=== PATIENT | female | born 1965 | race Caucasian/White ===

== ENCOUNTER 2017-01-05 05:19 | Day surgery (SDC) | payer MEDICAID, SELFPAY ==
[2017-01-05] VITALS (13 sets, daily range): BP systolic 103–148; BP diastolic 39–93; PULSE 55–93; RESP 14–20; TEMP 36.2–37.3; O2SAT 90–98; BMI 35.0
--- NOTE | 2017-01-05 06:38 | RAD_ITS ---
STUDY: LEFT ANKLE REASON FOR EXAM: Female, 51 years old. Ankle pain. RADIATION DOSAGE (If Supplied By Facility): CTDIvol = ( ) mGy, DLP = ( ) mGycm FLUOROSCOPY TIME (if supplied): ( ) minutes/seconds TECHNIQUE: Intraoperative fluoroscopy. 18 intraoperative views. COMPARISON: None. FINDINGS: Normal visualized distal tibia and fibula. Normal medial and lateral malleoli. Normal tibiotalar articulation and ankle mortise. There is arthrodesis of the subtalar joints and of the Chopart joint in good alignment. The soft tissue structures are unremarkable. RAD/Foot min 3 Views IMPRESSION: Normal x-ray examination of the ankle. Electronically Signed: Isabella Butler MD at 14:56 EDT Tel , Service support ,
--- NOTE | 2017-01-05 07:54 | TESH_PTH ---
PATIENT: VERENICE HOLT LOC: [facility] – [place] U#:[id number] AGE/SX: 51/F ROOM: RE01/05/[address]: Dr. Taj Mathew DPM : 1965 BED: DIS: 01/06/2017 SPEC #: [id number] RECD: 01/05/17 14:48 STATUS: DIANNE FRANCE #: [id number] DALIA: 01/05/17 07:[address]: Taj Mathew DEPT: SURGICAL PATHOLOGY RECD BY: Jose Ramon Silveira ENTERED: 01/05/17 14:48 SP TYPE: TENDON OTHR DR: ARLETH Nunes Tissues: Tendon and tendon sheath, NOS Procedures: Decalcification bone/plaque Surgery Specimen Level IV HEADER OPERATION: Talonavicular subtalar joint; endoscopic gastroc recession PRE-OP DIAGNOSIS: Left foot arthritis, flat foot TISSUE SUBMITTED: Posterior tibial tendon / accessory navicular left foot MICROSCOPIC DIAGNOSIS Bone and soft tissue, left foot, excision: Bone with degenerative changes. Soft tissue with degenerative change. AM:audrey 01/12/17 MICROSCOPIC DESCRIPTION Slides are reviewed. GROSS DESCRIPTION Received in fixative is one container labeled with the patient's name and designated posterior tibial tendon/accessory navicular left foot. The specimen consists of three variable size pieces of bone measuring in aggregate 3 x 2.5 x 1 cm. Also received are two pieces of indurated tissue measuring in aggregate 2 x 1 x 0.5 cm. Lumite Injector sections are submitted as follows: 1 - soft tissue, entirely submitted, 2 - bone after decalcification. / REJI:audrey 01/05/17 TC:5 CPT: 49186, 37134
--- NOTE | 2017-01-05 12:04 | PCM.OPRPT ---
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 Chacko Type of Anesthesia:: General Anesthesiologist: Neil Godinez Specimen's removed: Debrided posterior tibial tendon w/ accessory navicular, left foot Drains: None Estimated Blood Loss (mL): 100mL Description of Procedure: Indications: This is a 51 year old female with history of significant chronic left foot pain secondary posterior tibial tendon dysfunction with arthritic changes to the hindfoot, gastrocsoleus equinus, posterior tibial tendinopathy with accessory navicular bone, and plantar fasciitis with infracalcaneal spur. She has tried changes in shoegear, activity modifications, rest, anti-inflammatories, corticosteroid injection, and immobilization but symptoms persist. She has seen rheumatology and was advised she does not have systemic rheumatological condition. Given the continued symptoms despite extensive management she elected to under go surgical intervention - triple arthrodesis, gastrocsoleus recession, debride/repair posterior tibial tendon with excision of accessory navicular, and plantar fasciotomy with resection of infracalcaneal spur. This was discussed with her in great detail, reviewed the possible benefits vs risks/potential complications. The estimate healing/recovery time and protocol was reviewed with her in detail. She expressed understanding and agreement and elected to proceed forward with surgical intervention as noted above. The consent forms were reviewed with her and she freely signed them. All of her questions were answered. No guarantees were given. Operative Procedure: The patient was brought back into the operating room and was placed on the operating table in the supine position. Patient was carefully secured to the operating room table with a safety belt around her waist. A time out was performed and the patient was properly identified and the surgical plan was confirmed. The patient received 2 grams of intervenous Cefazolin for antibiotic prophylaxis. The patient received general anesthesia per the anesthesiologist. A well padded pneumatic tourniquet was applied around her left thigh. The left lower extremity was scrubbed, prepped, and draped in the usual aseptic fashion. Attention was directed to the left foot, there is pes planovalgus present with gastrocsoleus equinus present. There is -2 degrees dorsiflexion with knee extended and less than 10 degrees with knee flexed. The left foot was elevated for 3 minutes and the left thigh pneumatic tourniquet was inflated to 300mmHg. Attention was directed just distal to the medial head of the gastrocnemius muscle belly on the posterior leg. A 1cm linear skin incision was made using a 15 blade at this level at the medial aspect. Careful blunt dissection was completed down to the gastrocsoleus aponeurosis. A fascial elevator was used and a plane was complete between the subcutaneous tissue and the posterior aspect of the gastrocsoleus aponeurosis, and a 1cm linear skin incision was made using a 15 blade at the lateral aspect of the leg to create the lateral portal. The fascial elevator was removed, and am obturator and slotted cannula was placed through the medial and lateral portals. The obturator was removed and the slot was faced posteriorly and the sural nerve and the small saphenous vein was visualized confirming it was out of the way. The slot was rotated to face anteriorly and the gastrocsoleus aponeurosis was visualized, using a hook blade the gastrocsoleus aponeurosis was released. There was now noted to be +10 degrees of ankle dorsiflexion with knee flexed and extended, but there was noted to be bony block to the anterior ankle which was addressed as noted below. The obturator was placed in the cannula, and they were both removed. The site was flushed out with copious amounts of normal saline solution. The skin was reapproximated using 4-0 nylon. Attention was directed to the foot where a skin incision was medially along the medial talonavicular joint. This was done using a 15 blade. Careful blunt dissection was completed down to the posterior tibial tendon sheath which was incised, the posterior tibial tendon was visualized and there was noted to be yellow hypertrophic tendon at the distal aspect at level of the incision point. There was also a very large accessory navicular bone. The hypertrophic yellow tendon was debrided and passed from the surgical site and was sent to pathology. Otherwise the tendon was intact with no significant tear present to no repair was necessary. The accessory navicular was carefully excised using a 15 blade leaving the incision point of the posterior tibial tendon. The excised accessory bone was sent to pathology for further evaluation. The bone was hypertrophic and degenerative. The capsule of the talonavicular joint was incised using a 15 blade and partially reflected exposing the joint surfaces. There were osteoarthritis degenerative changes, and there was a dorsal exostosis to the talus head/distal neck causing impingement. The cartilage was worn away, and all cartilage from the talar head and posterior navicular surface was removed down to bleeding bone. This was done with a curette and a bone spur being sure not to cause osteonecrosis. The surfaces were fenestrated to aid fusion using a small drill. Attention was directed to the lateral column were an incision was made from the distal fibular directed to the 4th metatarsal base. This was done using a 15 blade. Careful blunt dissection was completed down to the calcaneal cuboid joint. The extensor digitorum brevis muscle belly was visualized and was partially reflected to expose to the sinus tarsi The capsule of the calcaneal cuboid joint was incised using a 15 blade and partially reflected exposing the joint surfaces. There were osteoarthritis degenerative changes. The cartilage was worn away, and all cartilage from the calcaneal cuboid joint surfaces were removed down to bleeding bone. This was done with a curette and a bone spur being sure not to cause osteonecrosis. The surfaces were fenestrated to aid fusion using a small drill. Careful blunt dissection was completed to the subtalar joint (posterior, medial and anterior subtalar joint), the lateral capsule and the interosseous ligaments were released. All cartilage from the subtalar joint surfaces was removed down to bleeding bone. This was done with a curette and a bone spur being sure not to cause osteonecrosis. The surfaces were fenestrated to aid fusion using a small drill. The lateral aspect of the talonavicular joint was visualized and confirmed all cartilage was removed. The heel and subtalar joint was placed in neutral position / vertical position and two 7.0 cannulated Shall[place] screws were placed across the prepped subtalar joint starting from the plantar posterior calcaneus. A small skin incision was made to the posterior plantar calcaneus for screw placement with careful blunt dissection completed down to the bone. There was good compression and bone to bone contract with the prepped subtalar joint surfaces in good alignment. The subtalar joint was rigid and stable. The prepped surfaces of the talonavicular joint were brought together with good in proper alignment and were fixated using two 4.0 cancellated screws. There was good compression and bone to bone contract with the prepped talonavicular joint surfaces in good alignment. The site was rigid and stable. The prepped surfaces of the calcaneal cuboid joint were brought together with good in proper alignment and were fixated using two easy fix Shallotte monse. There was good compression and bone to bone contract with the prepped calcaneal joint surfaces in good alignment. The site was rigid and stable. This was checked and confirmed with intraoperative fluoroscopy. Images were saved and placed in patient's chart. The hindfoot was stable and in good position with good fixation, there was good bone to bone contract and all hardware in place with no complications. There was noted to be an exostosis to the dorsal talar head/neck which was causing impingement with the anterior tibia with end range of dorsiflexion. This was filed down using a bone bur being sure not to cause osteonecrosis. The ankle was dorsiflexed and it was noted to be +10 degrees of ankle dorsiflexion with knee extended, and > 10 degrees with knee flexed. Also of note, the arthrodesis sites (talonavicular, subtalar, and calcaneal cuboid) were packed with a total of 5mL of Sujit Vitoss mixed with cancellous bone chips to aid fusion. Next, the infracalcaneal spur was visualized on intra operative fluoroscopy. A skin incision was made to the medial hindfoot at the level of the plantar fascia and infracalcaneal spur, careful blunt dissection was completed down through the subcutaneous tissue layer. A plane was created superiorly and inferiorly around the plantar fascia and the medial 50% of the plantar fascia was released via a plantar fasciotomy. The infracalcaneal spur was felt, and was carefully resected using a powered rasp. Resection of the infracalcaneal spur was confirmed using intraoperative fluoroscopy. The surgical sites were flushed out with copious amounts of normal saline solution. The subcutaneous tissue layers were reapproximated using 3-0 and 4-0 Vicryl and the skin was reapproximated using 3-0 Nylon. The pneumatic tourniquet was deflated at 121 minutes within in operative procedure, then deflated, and there was immediate return of warmth and perfusion to the foot and to all toes on the foot with normal temperature gradient and CFT < 2 seconds to all toes, the pneumatic tourniquet was down for 67 minutes, and then the foot was elevated again and tourniquet was re-inflated to 300mmHg for an additional 54 minutes, at which time it was again deflated at 121 minutes within in operative procedure, then deflated, and there was immediate return of warmth and perfusion to the foot and to all toes on the foot with normal temperature gradient and CFT < 2 seconds to all toes. Hemostasis was achieved. A dressing was applied which consisted of betadine soaked adaptic, 4x4 gauze, kerlix, webril, and summer bandage and a well padded below the knee posterior splint secured with summer bandages and with the heel offloaded. Of note, all vital structures including all vital neurovascular and tendon structures were properly identified, protected, and retracted as necessary throughout the above operative procedure. The patient tolerated the above operative procedure well at the anesthesia well with no complication. The patient was transported to the recovery room with vital signs stable and in good condition. Post operative orders were placed, and patient will be admitted for post op pain control and observation, I did speak with Dr. Jiménez. No weightbearing left foot, keep left foot elevated for at least 50 minutes of every hour, keep dressing clean, dry and intact. The patient was given a lower extremity popliteal and saphenous block per anesthesia service in the post operative recovery area. Post operative xrays were obtained in the recovery room (DP, Oblique, and lateral foot; AP, Mortise, and Lateral ankle, and calcaneal axial views) - there was noted to be triple arthrodesis with joint surfaces in good alignment and good bone to bone contract with intact hardware; alignment was good, accessory navicular bone has been excised; no acute problems or compilations seen. Grafts/Implants Used: Sujit screws and monse; cancellous bone chips with vitoss ([employer]) - Complications None - Admit VTE Documentation VTE Present on Admission: No VTE Mechan Device Prophylaxis: SCD's - SCD right lower extremity VTE Pharm Prophylaxis ordered?: Yes
--- NOTE | 2017-01-05 12:08 | RAD_ITS ---
STUDY: X-RAY - LEFT FOOT CLINICAL: Female, 51 years old. Foot pain TECHNIQUE: 2 view(s) of the foot. COMPARISON: None. FINDINGS: There is arthrodesis of the subtalar joints and of the Chopart joint in good alignment. Normal metatarsophalangeal joint of the great toe. Normal tibial and fibular sesamoid bones. Normal interphalangeal joint of the great toe. Normal phalanges of the great toe. Normal second through fifth metatarsophalangeal joints. Normal interphalangeal joints and phalanges of the lesser toes. The soft tissue structures are unremarkable. RAD/Foot min 3 Views IMPRESSION: There is arthrodesis of the subtalar joints and of the Chopart joint in good alignment. Electronically Signed: Isabella Butler MD at 13:03 EDT Tel , Service support ,
--- NOTE | 2017-01-05 12:09 | RAD_ITS ---
STUDY: X-RAY - LEFT CALCANEUS REASON FOR EXAM: Female, 51 years old. Left ankle pain TECHNIQUE: 2 view(s) of the calcaneus were obtained. COMPARISON: None. FINDINGS: There is arthrodesis of the subtalar joints and of the Chopart joint in good alignment. RAD/Calcaneus min 2 Views IMPRESSION: There is arthrodesis of the subtalar joints and of the Chopart joint in good alignment. Electronically Signed: Isabella Butler MD at 13:02 EDT Tel , Service support ,
--- NOTE | 2017-01-05 12:09 | RAD_ITS ---
STUDY: X-RAY - LEFT ANKLE REASON FOR EXAM: Female, 51 years old. Left ankle pain TECHNIQUE: 2 view(s) of the ankle. COMPARISON: None. FINDINGS: Normal visualized distal tibia and fibula. Normal medial and lateral malleoli. Normal tibiotalar articulation and ankle mortise. There is arthrodesis of the subtalar joints and of the Chopart joint in good alignment. The soft tissue structures are unremarkable. RAD/Ankle 2 Views IMPRESSION: Normal x-ray examination of the ankle. Electronically Signed: Isabella Butler MD at 13:02 EDT Tel , Service support ,
[2017-01-05] MEDS: Cefazolin 1 GM/50 ML BAG IV ×2 (15:02→22:55)
--- NOTE | 2017-01-05 15:17 | HP.PCM_ITS ---
Problem List (1) Flat foot [pes planus] (acquired), left foot Status: Acute (2) Hypertension Status: Chronic Qualifiers: Hypertension type: essential hypertension Qualified Code(s): I10 - Essential (primary) hypertension History of Present Illness Date of Admission: 01/05/17 Chief Complaint: Status post flatfoot repair The patient is a 51 year old F who today underwent a flatfoot repair with triple arthrodesis, gastrocsoleus recession, resection of accessory navicular with debridement of posterior tibial tendon, plantar fasciotomy with infra calcaneal spur resection of the left foot. Patient had a nerve block and does have some pain the patient is being admitted for anticipated increased pain and ensuring that she will the tolerates oral agents prior to discharge. Patient has some numbness in her left foot but also does experience some pain. Otherwise feeling well. [] Past Medical History Past Medical History (Chronic Problems): Chronic Problems Hypertension (Chronic) Allergies No Known Allergies Allergy (Verified 12/29/16 13:54) Home Medications: Ambulatory Orders Medication Instructions Recorded Chlorthalidone 12.5 mg PO DAILY 12/29/16 Cholecalciferol (Vitamin D3) 1,000 unit PO DAILY 12/29/16 [Vitamin D3] Lisinopril [Zestril] 10 mg PO DAILY 12/29/16 Metoprolol Tartrate [Lopressor 50 mg PO BID 12/29/16 (Beta Lázaro)] Smoking Status: Former smoker Tobacco Use: Non-smoker Alcohol: None Drugs: None - *Family History Maternal History Items: No pertinent history Paternal History Items: No pertinent history Additional Family History: Positive for heart disease in her grandparents Review of Systems Constitutional: Denies: Chills, Fever, Weight Change Eyes: Denies: Blurred vision, Double vision HEENT: Reports: Sore Throat - After intubation. Denies: Head Aches, Sinus Congestion, Sinus Drainage Cardiovascular: Denies: Chest Pain, Palpitations Respiratory: Denies: Cough, Shortness of breath at rest, Sputum production Gastrointestinal: Denies: Abdominal Pain, Nausea, Vomiting Genitourinary: Denies: Dysuria Musculoskeletal: Reports: - - Left foot pain and numbness Skin: Denies: Rash, Wounds Neurological: Denies: Numbness, Tingling, Focal weakness Psychiatric: Denies: Anxiety, Depression, Homicidal Ideations, Suicidal Ideations Hematologic/ Lymphatic: Denies: Easy Bruising, Easy Bleeding, Hx of blood clot VTE Information - Inpt Only VTE Present on Admission: No VTE Pharm Prophylaxis ordered?: Yes Patient Problems: Active and Suspected Problems Flat foot [pes planus] (acquired), left foot (Acute) - Physical Exam General: Alert, Cooperative, No apparent distress HEENT: Atraumatic, Normocephalic Oral: Moist Mucosa, No Gingival or Mucosal Lesions/ Ulcerations Neck: No Nodes, Thyroid Normal Size and Texture Lungs: Clear to auscultation, Normal air movement, No rhonchi, No wheeze Cardiovascular: Regular rate, Regular Rhythm, Normal S1, Normal S2, No murmurs Abdomen: Bowel Sounds Present, Soft, Non Tender, Non-Distended, No Hepato- splenomegaly Extremities: No clubbing, No edema, No Calf Tenderness Skin: No rashes, No breakdown Musculoskeletal: No Tenderness to Palpation of Joints or Extremities, No Muscle Wasting Psych/Mental Status: Normal Affect, Appropriate Vital Signs Temp Pulse Resp BP Pulse Ox 36.6 C 74 18 111/55 95 01/05/17 14:46 01/05/17 14:46 01/05/17 14:46 01/05/17 14:46 01/05/17 14:46 Oxygen Flow Rate 3 Oxygen Delivery Method Room Air Weight: 101.6 kg Body Mass Index (BMI) 35.0 Intake and Output for Last 24 Hours 01/03/17 01/04/17 01/05/17 23:59 23:59 23:59 Intake Total 1500 Balance 1500 Assessment/Plan Active and Suspected Problems Flat foot [pes planus] (acquired), left foot (Acute) 1. Status post flatfoot repair * Pain management. Podiatry is already put in orders for Dilaudid as well as oxycodone. We will continue these current doses of they are in some the higher ends. If patient is manifesting signs of somnolence or grogginess with pain medications and I would proceed to de-escalate that therapy. 2. Hypertension continue with her chlorthalidone as well as lisinopril 3. DVT prophylaxis with low molecular weight heparin
[2017-01-05] MEDS: oxyCODONE 5 MG Tablet 10 MG PO (17:11)
--- NOTE | 2017-01-05 19:55 | NURSING ---
Pt placed on oxygen at 1L via n/c. Continuous pulse ox was showing 86-88% at times. Pt was sleeping when I went back to her room. After applying 1L, pt is now reading in the 90's.
[2017-01-05] MEDS: Acetaminophen 325 MG Tablet 650 MG PO (23:28)
[2017-01-06] MEDS: Ketorolac 10 MG Tablet PO (03:55)
[2017-01-06 04:47] VITALS: BP 119/44; PULSE 78; RESP 14; TEMP 36.9; O2SAT 97
[2017-01-06 06:28] LABS: Absolute Lymphocyte Count 1.51 X10^3/ul (0.83-4.51); Absolute Neutrophil Count 7.2 X10^3/uL (2.0-7.7); Basophil# 0.01 X10^3/uL; Basophil% 0.1 % (0-1); Eosinophil# 0.04 X10^3/uL; Eosinophils% 0.4 % (0-5); Hemoglobin 11.2 g/dl (12.0-15.0); Lymphocyte # 1.51 X10^3/ul (4.0); Lymphocyte % 15.4 % (19-41); Mean Corp Hgb Conc 32.9 g/gl (32-36); Mean Corpuscular Hgb 30.7 pg (27.0-32.0); Mean Corpuscular Volume 93.2 fL (81-99); Mean Platelet Vol. 9.4 fl (6.2-12.0); Monocyte# 1.09 X10^3/uL; Monocyte% 11.1 % (0-10); Neutrophil # 7.15 X10^3/uL (2.7-7.7); Neutrophil % 72.8 % (47-70); Platelet Count 227 K/mm3 (150-450); RBC Distribution Width CV 12.8 % (11.6-14.6); RBC Distribution Width SD 41.6 fl (35.1-43.9); Red Blood Count 3.65 M/mm3 (4.2-5.4); White Blood Count 9.8 K/mm3 (4.4-11.0)
[2017-01-06 06:29] LABS: POSITIVE COUNT NO; POSITIVE DIFFERENTIAL NO; POSITIVE MORPHOLOGY NO
[2017-01-06 06:54] LABS: Anion Gap 7 (5-15); BUN 11 mg/dL (7-18); BUN/Creat Ratio 16.4 RATIO (10-20); Calcium,Total 8.3 mg/dL (8.5-10.1); Chloride 102 mmol/L (98-107); Creatinine, Serum 0.67 mg/dL (0.55-1.02); EST Glomerular Filtration Rate 98 mL/min (>60); Est Glom Filt Rate - Afr Amer 119 mL/min (>60); Glucose 111 mg/dL (70-110); Potassium 3.3 mmol/L (3.5-5.1); Sodium Level 139 mmol/L (136-145)
[2017-01-06] MEDS: Enoxaparin 40 MG/0.4 ML Syringe SC (06:58)
[2017-01-06 07:16] VITALS: O2SAT 97
[2017-01-06] MEDS: Cefazolin 1 GM/50 ML BAG IV (07:55)
[2017-01-06] MEDS: oxyCODONE 5 MG Tablet 10 MG PO (08:13)
[2017-01-06] MEDS: Acetaminophen 325 MG Tablet 650 MG PO (08:14)
--- NOTE | 2017-01-06 09:19 | PCM.PROGNOTE ---
Patient Problems: Active and Suspected Problems Flat foot [pes planus] (acquired), left foot (Acute) Subjective: Patient seen this morning for follow up on left foot, s/p surgical intervention yesterday. Patient relates block is wearing off, did not receive any narcotics overnight due to decreased pulse ox O2 saturation, was placed on oxygen and O2 saturation improved; now off oxygen and on room air; pulse ox 94%. She is resting in bed, relates to pain to medial ankle, but appears to be comfortable and she relates pain now controlled since receiving her recent dose of oxyir and acetaminophen. She denies any fever, chills, nausea, or vomiting. She denies any calf pain or cramping. She has no other complaints. - Physical Exam General: Alert, Oriented x3, Cooperative, No apparent distress Extremities: Capillary Refill Less than 3 Seconds, No Calf Tenderness, - - Left foot/ankle/leg: Dressing/splint clean and intact, normal temperature to the toes with CFT < 2 seconds to all toes; no suspicion from infection, calf soft with no pain; she relates toes are still numb from block, no pain to the dorsal or lateral foot but able to feel pain to the medial aspect, there is edema to the toes consistent with normal post op course, no strikethrough on dressing, no evidence of active bleeding. Vital Signs Temp Pulse Resp BP Pulse Ox 98.5 F 78 14 119/44 97 01/06/17 04:47 01/06/17 04:47 01/06/17 04:47 01/06/17 04:47 01/06/17 07:16 Oxygen Flow Rate 1 Oxygen Delivery Method Nasal Cannula Weight: 101.6 kg Body Mass Index (BMI) 35.0 Intake and Output for Last 24 Hours 01/04/17 01/05/17 01/06/17 23:59 23:59 23:59 Intake Total 1806 1540 Balance 1806 1540 Laboratory Tests Past 24 Hrs 01/06/17 01/06/17 01/06/17 05:35 05:35 05:35 WBC 9.8 RBC 3.65 L Hgb 11.2 L Hct 34.0 L MCV 93.2 MCH 30.7 MCHC 32.9 RDW 12.8 RDW Differential 41.6 Plt Count 227 MPV 9.4 Immature Gran % (Auto) 0.200 Neut % (Auto) 72.8 H Lymph % (Auto) 15.4 L [place] % (Auto) 11.1 H Eos % (Auto) 0.4 Baso % (Auto) 0.1 Absolute Neuts (auto) 7.2 Absolute Lymphs (auto) 1.51 Total Counted Not Reportable Sodium 139 Potassium 3.3 L Chloride 102 Carbon Dioxide 30.0 Anion Gap 7 BUN 11 Creatinine 0.67 Estim Creat Clear Calc 96.60 Est GFR (MDRD) Af Amer 119 Est GFR (MDRD) Non-Af 98 BUN/Creatinine Ratio 16.4 Glucose 111 H Calcium 8.3 L Vitamin D 25-Hydroxy Pending Assessment/Plan Active and Suspected Problems Flat foot [pes planus] (acquired), left foot (Acute) s/p triple arthrodesis (talonavicular, subtalar and calcaneal cuboid arthrodesis), Gastrocsoleus Recession, resection of accessory navicular w/ debridement of posterior tibial tendon, plantar fasciotomy with infracalcaneal spur resection, left foot on 01/05/17 -Pain Control: Patient relates pain is controlled at this time with oxycodone and acetaminophen; continue to monitor and observe. If patient is still tolerating oxycodone and acetaminophen well with pain controlled this afternoon ok to discharge home with percocet. This was discussed with patient who agreed, and also discussed with patient's nurse Elyse and Dr. Jiménez. -Strict non-weightbearing left foot, keep left foot elevated at/above chest level for at least 50 minutes of every hour. Keep dressing/splint clean, dry, and intact. Patient to follow up with me in office as scheduled on 01/15/17, sooner if needed. -DVT prophylaxis: Lovenox 40mg subcutaneous once daily. -Hypertension/medical management: Per medicine/hospitalist service.
--- NOTE | 2017-01-06 09:58 | PN_ITS ---
Patient Problems: Active and Suspected Problems Flat foot [pes planus] (acquired), left foot (Acute) Subjective: Patient stated that her foot is feeling worse. His ointment taken Tylenol and ibuprofen. Patient denies any shortness of breath. Patient has been told by her that she snores but does not have any obvious apneic episodes. Vitals/I&O's: Vital Signs Temp Pulse Resp BP Pulse Ox 36.9 C 78 14 119/44 97 01/06/17 04:47 01/06/17 04:47 01/06/17 04:47 01/06/17 04:47 01/06/17 07:16 Oxygen Flow Rate 1 Oxygen Delivery Method Nasal Cannula Weight: 101.6 kg Body Mass Index (BMI) 35.0 Intake and Output for Last 24 Hours 01/04/17 01/05/17 01/06/17 23:59 23:59 23:59 Intake Total 1806 1540 Balance 1806 1540 General: Alert, Cooperative, No apparent distress HEENT: Atraumatic, Normocephalic Neck: No Nodes, Thyroid Normal Size and Texture Lungs: Clear to auscultation, No rhonchi, No wheeze, Diminished Cardiovascular: Regular rate, Regular Rhythm, Normal S1, Normal S2, No murmurs Abdomen: Bowel Sounds Present, Soft, Non Tender, Non-Distended Extremities: No edema, No Calf Tenderness Skin: No rashes, No breakdown Psych/Mental Status: Normal Affect, Appropriate Laboratory Results 01/06/17 05:35: WBC 9.8, RBC 3.65 L, Hgb 11.2 L, Hct 34.0 L, MCV 93.2, MCH 30.7 , MCHC 32.9, RDW 12.8, RDW Differential 41.6, Plt Count 227, MPV 9.4, Immature Gran % (Auto) 0.200, Neut % (Auto) 72.8 H, Lymph % (Auto) 15.4 L, [place] % (Auto) 11.1 H, Eos % (Auto) 0.4, Baso % (Auto) 0.1, Absolute Neuts (auto) 7.2, Absolute Lymphs (auto) 1.51, Total Counted Not Reportable 01/06/17 05:35: Sodium 139, Potassium 3.3 L, Chloride 102, Carbon Dioxide 30.0, Anion Gap 7, BUN 11, Creatinine 0.67, Estim Creat Clear Calc 96.60, Est GFR ( MDRD) Af Amer 119, Est GFR (MDRD) Non-Af 98, BUN/Creatinine Ratio 16.4, Glucose 111 H, Calcium 8.3 L 01/06/17 05:35: Vitamin D 25-Hydroxy Pending Current Medications Acetaminophen (Tylenol) 650 mg PO Q6H PRN PRN PRN Reason: PAIN Last Admin: 01/06/17 08:14 Dose: 650 mg Enoxaparin Sodium (Lovenox) 40 mg SC DAILY@0600 DAWIT Last Admin: 01/06/17 06:58 Dose: 40 mg Hydromorphone HCl (Dilaudid) 1 mg IV Q2H PRN PRN PRN Reason: SEVERE PAIN (6-10/10) Naloxone HCl 4 mg/ Dextrose 504 mls @ 0 mls/hr IV .Q0M PRN; Protocol; Titrate PRN Reason: To maintain Resp. rate >10 Ketorolac Tromethamine (Toradol) 10 mg PO Q6H PRN PRN PRN Reason: PAIN Stop: 01/11/17 03:10 Last Admin: 01/06/17 03:55 Dose: 10 mg Naloxone HCl (Narcan) 0.02 mg IV Q1M PRN PRN Reason: RR <10 and pt unresponsive Oxycodone HCl (Oxyir) 5 - 10 mg PO Q4H PRN PRN PRN Reason: SEVERE PAIN (6-10/10) Sodium Chloride () 5 - 30 ml IV UD PRN PRN Reason: SALINE FLUSH Assessment/Plan Active and Suspected Problems Flat foot [pes planus] (acquired), left foot (Acute) 1. Status post flatfoot repair * Pain management. Podiatry is already put in orders for Dilaudid as well as oxycodone. We will continue these current doses of they are in some the higher ends. If patient is manifesting signs of somnolence or grogginess with pain medications and I would proceed to de-escalate that therapy. * Per Dr. Mathew, who saw the patient after I had, patient tolerated the oxycodone well. Patient had not received any narcotics since the evening before but is doing well. Nerve block has yet to wear off, so will reevaluate this afternoon and if patient is doing well that she can be discharged with oxycodone. * Will be nonweightbearing * Patient will follow up with Dr. Mathew on January 15 2. Hypertension continue with her chlorthalidone as well as lisinopril 3. DVT prophylaxis with low molecular weight heparin
[2017-01-06 10:35] VITALS: BP 124/63; PULSE 81; RESP 18; TEMP 36.7; O2SAT 95
[2017-01-06] MEDS: HYDROmorphone 1 MG/ML Syringe IV (11:32)
[2017-01-06 11:59] VITALS: PULSE 80; O2SAT 95
[2017-01-06] MEDS: oxyCODONE 5 MG Tablet PO (13:46)
--- NOTE | 2017-01-06 13:56 | PCM.DC ---
- Discharge Diagnoses Current Active Problems: Current Active and Chronic Problems Flat foot [pes planus] (acquired), left foot (Acute) Hypertension (Chronic) You will use the following diet at home:: No restrictions Weight Bearing Status: No weight bearing - LLE Keep extremity elevated above heart level: Left Leg Call your doctor if your incision/area has: Sudden Increased Bleeding, Increased Pain/ Swelling, Increased Redness Call your doctor if you observe: Fever of 101 or Higher Allergies/Adverse Reactions: Allergies No Known Allergies Allergy (Verified 12/29/16 13:54) Medications to take at Discharge Chlorthalidone 12.5 mg PO DAILY 12/29/16 Cholecalciferol (Vitamin D3) [Vitamin D3] 1,000 unit PO DAILY 12/29/16 Lisinopril [Zestril] 10 mg PO DAILY 12/29/16 Metoprolol Tartrate [Lopressor (beta lanny)] 50 mg PO BID 12/29/16 Enoxaparin Sodium [Lovenox] 40 mg SQ DAILY #14 syringe 01/06/17 Oxycodone HCl/Acetaminophen [Percocet 5/325] 1 - 2 tablet PO Q6H PRN PRN #30 tablet 01/06/17 The following prescriptions were given: Oxycodone HCl/Acetaminophen [Percocet 5/325] 1 - 2 tablet PO Q6H PRN PRN #30 tablet PRN Reason: Pain Enoxaparin Sodium [Lovenox] 40 mg SQ DAILY #14 syringe Primary Care Physician: Lizeth Smith PA [Primary Care Provider] - Please Follow Up With: Taj Mathew When: January 15 Proposed Discharge Date: 01/06/17
[2017-01-06 14:00] VITALS: BP 131/71; PULSE 80; RESP 18; TEMP 36.7; O2SAT 96
--- NOTE | 2017-01-06 14:00 | DS.PCM_ITS ---
Discharge Date and Diagnosis - Problem List Patient Problems: Active and Suspected Problems Flat foot [pes planus] (acquired), left foot (Acute) Date of Admission: 01/05/17 Date of Discharge: 01/06/17 - Primary Discharge Diagnosis Active and Suspected Problems Flat foot [pes planus] (acquired), left foot (Acute) - Secondary Discharge Diagnosis Chronic Problems Hypertension (Chronic) Hospital Course and Treatment Procedures: - - Triple arthrodesis (talonavicular, subtalar and calcaneal cuboid arthrodesis), Gastrocsoleus Recession, resection of accessory navicular w / debridement of posterior tibial tendon, plantar fasciotomy with infracalcaneal spur resection, left foot Summary of Care Provided: The patient is a 51 year old F who underwentTriple arthrodesis (talonavicular, subtalar and calcaneal cuboid arthrodesis), Gastrocsoleus Recession, resection of accessory navicular w/ debridement of posterior tibial tendon, plantar fasciotomy with infracalcaneal spur resection, left foot. Patient was monitored to ensure that her pain was not too severe prior to discharge. Patient has been tolerating the oxycodone and will be discharged. Patient to be nonweightbearing of her left lower extremity and will follow up Dr. oakes on January 15. [] Discharge Diet: No Restrictions Weight Bearing Status: No weight bearing - LLE Keep extremity elevated above heart level: Left Leg Call your doctor if your incision/area has: Sudden Increased Bleeding, Increased Pain/ Swelling, Increased Redness Call your doctor if you observe: Fever of 101 or Higher Home Medications: Medications to take at Discharge Chlorthalidone 12.5 mg PO DAILY 12/29/16 Cholecalciferol (Vitamin D3) [Vitamin D3] 1,000 unit PO DAILY 12/29/16 Lisinopril [Zestril] 10 mg PO DAILY 12/29/16 Metoprolol Tartrate [Lopressor (beta lanny)] 50 mg PO BID 12/29/16 Enoxaparin Sodium [Lovenox] 40 mg SQ DAILY #14 syringe 01/06/17 Oxycodone HCl/Acetaminophen [Percocet 5/325] 1 - 2 tablet PO Q6H PRN PRN #30 tablet 01/06/17 Following Prescrptions Were Given to Patient: Oxycodone HCl/Acetaminophen [Percocet 5/325] 1 - 2 tablet PO Q6H PRN PRN #30 tablet PRN Reason: Pain Enoxaparin Sodium [Lovenox] 40 mg SQ DAILY #14 syringe Primary Care Physician: Lizeth Smith PA [Primary Care Provider] - Please Follow Up With: Taj Mathew When: January 15 Disposition: Home Minutes spent on discharge:: 28 Patient Condition:: Good Meaningful Use Info Meaningful Use Diagnoses (Choose all that apply): None applicable
[2017-01-08 11:30] LABS: Vitamin D,25 Hydroxy 27.7 ng/mL
== END 2017-01-06 15:27 | disposition home or self-care (01) ==
PROVIDERS: Family Provider Physician Assistant; PCP Physician Assistant; Visit Provider Podiatrist
DX: M21.42 Flat foot [pes planus] (acquired), left foot (principal); M72.2 Plantar fascial fibromatosis; M77.32 Calcaneal spur, left foot; M19.072 Primary osteoarthritis, left ankle and foot; M62.472 Contracture of muscle, left ankle and foot; I10 Essential (primary) hypertension; E66.9 Obesity, unspecified; E78.00 Pure hypercholesterolemia, unspecified; G25.81 Restless legs syndrome; Z68.35 Body mass index [BMI] 35.0-35.9, adult; Z87.891 Personal history of nicotine dependence; Z79.1 Long term (current) use of non-steroidal anti-inflammatories (NSAID); Z79.899 Other long term (current) drug therapy
CPT/HCPCS: 27687; 28119; 28725; 28740; 64447; 36415; 73600; 73630; 73650; 76000; 80048; 82306; 85025; 88304; 88305; 88311; 94762; 97162; J7040; J7120; G8978; G8979; J2405